=== PATIENT | male | born 1955 | race Caucasian/White ===

== ENCOUNTER 2024-08-25 17:22 | Emergency (ER) | payer OTHER, SELFPAY ==
[2024-08-25 17:30] VITALS: BP 142/87; PULSE 67; TEMP 36.3; O2SAT 98; BMI 29.9
--- NOTE | 2024-08-25 18:01 | CRLHL7_ITS ---
For Patients: As a result of the Century Cures Act, medical imaging exams and procedure reports are released immediately into your electronic medical record. You may view this report before your referring provider. If you have questions, please contact your health care provider. INDICATION: Fall COMPARISON: None TECHNIQUE: CT head and CT maxillofacial without contrast. FINDINGS: Brain Parenchyma: No acute infarct, acute intracranial hemorrhage, mass effect, or midline shift. Ventricles: No hydrocephalus. Extra-axial Spaces: No abnormal fluid collection. Paranasal sinuses: No significant mucosal thickening. Orbits: Unremarkable Mastoid Sinuses: Unremarkable Bones: No acute fracture. Soft tissues: Small right frontal subgaleal hematoma/scalp contusion. Other: Nasal cavity, oral cavity, nasopharynx, and oropharynx are unremarkable. IMPRESSION: 1. No CT evidence of an acute intracranial process. 2. Small right frontal subgaleal hematoma/scalp contusion without underlying fracture. Please note that all CT scans at this facility use dose modulation, iterative reconstruction, and/or weight-based dosing when appropriate to reduce radiation dose to as low as reasonably achievable. Dictated by George Henderson MD @ 08/25/2024 6:56:22 PM (Electronically Signed)
--- NOTE | 2024-08-25 18:01 | CRLHL7_ITS ---
For Patients: As a result of the Century Cures Act, medical imaging exams and procedure reports are released immediately into your electronic medical record. You may view this report before your referring provider. If you have questions, please contact your health care provider. INDICATION: Fall COMPARISON: None TECHNIQUE: CT of the cervical spine without contrast FINDINGS: No acute fracture or malalignment. Straightening of the normal cervical lordosis, likely positional. No listhesis. Vertebral body heights are maintained. Spondylitic changes of the cervical spine to include varying degrees of multilevel intervertebral disc height loss, degenerative endplate and uncovertebral and facet arthropathy, and small disc osteophyte complex at C6-C7. No acute high-grade spinal canal or neuroforaminal stenosis. The soft tissues are without acute abnormality. Minimal biapical pleural/parenchymal scarring. IMPRESSION: No acute fracture or trauma-related malalignment. Please note that all CT scans at this facility use dose modulation, iterative reconstruction, and/or weight-based dosing when appropriate to reduce radiation dose to as low as reasonably achievable. Dictated by George Henderson MD @ 08/25/2024 7:00:03 PM (Electronically Signed)
--- NOTE | 2024-08-25 18:02 | ED.FALL ---
HPI - Fall General Date Seen: 08/25/24 Chief Complaint: Fall/Minor Trauma Stated Complaint: fell- hit head Time Seen by Provider: 08/25/24 17:25 Source: patient Mode of arrival: ambulatory Limitations: no limitations History of Present Illness HPI Narrative: Patient is a 69-year-old male presenting to the emergency department after a fall that occurred shortly prior to arrival. He states he was playing 4 sq with his grandkids when he reached out and tried to get the ball and he tripped and fell. He landed on his right knee, right elbow and hit his right forehead. Has an abrasion to his right knee but states it is minimally painful at this time is able to ambulate without issues. Also has a small abrasion to his right elbow but denies any pain. Is not any blood thinners. Initially had some foggy vision but that has since resolved. That lasted about 10 minutes. No other concerns noted. Denies any loss of consciousness. Denies any neck pain. Denies weakness, numbness, chest pain, shortness of breath. Related Data Home Medications ?Medication ?Instructions ?Recorded ?Confirmed No Known Home Medications 08/25/24 08/25/24 Allergies Allergy/AdvReac Type Severity Reaction Status Date / Time No Known Drug Allergies Allergy Verified 08/25/24 17:34 Review of Systems Narrative: Pertinent systems reviewed and were negative unless stated in HPI PFSH PFS Social History Smoking Status: Never smoker Do you use any of these nicotine containing products: None How often do you have a drink containing alcohol: 2-4 times a month AUDIT-C Alcohol total score: 2 Exam Narrative: Exam Narrative: Const: Well-nourished, Well-developed, in name distress Eyes: PERRL, no conjunctival injection, and symmetrical lids HENT: Atraumatic external nose and ears. Moist mucous membranes. 3 x 3 cm hematoma to right forehead with small abrasion overlying Neck: Symmetric, trachea midline, No thyromegaly. CVS: RRR, No murmurs or gallops. Peripheral pulses 2+ and equal in all extremities RESP: Unlabored respiratory effort. Clear to auscultation bilaterally. GI: Nontender/Nondistended, No rebound or guarding. MSK:Extremities w/o deformity, Normal Active ROM, no tenderness noted to extremities. Skin: Warm, Dry. 1 cm oval cm abrasion noted just proximal to the right patella with other smaller abrasions around it. Small abrasions to right elbow Neuro: Normal Muscle tone, No focal neurological deficits. Psych: Awake, Alert, & Oriented x3. Appropriate mood and affect. Const: Vital Signs, click to edit/add: Vital Signs - 24 hr 08/25/24 17:30 08/25/24 19:10 Temperature 97.4 F L Pulse Rate [Pulse Oximeter] 67 62 Respiratory Rate 16 Blood Pressure [Le ft Upper Arm] 142/87 H 145/88 H Pulse Oximetry 98 96 Oxygen Delivery Me thod Room Air Room Air Course Vital Signs Vital signs: Initial Vital Signs Temperature 97.4 F L 08/25/24 17:30 Temperature Source Temporal Artery Scan 08/25/24 17:30 Pulse Rate 67 08/25/24 17:30 Pulse Rhythm Regular 08/25/24 17:30 Blood Pressure 142/87 H 08/25/24 17:30 Blood Pressure Mean 105 08/25/24 17:30 Blood Pressure Position Supine 08/25/24 17:30 Pulse Oximetry 98 08/25/24 17:30 Oxygen Delivery Method Room Air 08/25/24 17:30 Vital Signs Temperature 97.4 F L 08/25/24 17:30 Pulse Rate 67 08/25/24 17:30 Blood Pressure 142/87 H 08/25/24 17:30 Pulse Oximetry 98 08/25/24 17:30 Oxygen Delivery Method Room Air 08/25/24 17:30 Temperature 97.4 F L 08/25/24 17:30 Pulse Rate 62 08/25/24 19:10 Respiratory Rate 16 08/25/24 19:10 Blood Pressure 145/88 H 08/25/24 19:10 Pulse Oximetry 96 08/25/24 19:10 Oxygen Delivery Method Room Air 08/25/24 19:10 Medications Administered Medications: Discontinued Medications Generic Name Dose Route Start Last Admin Trade Name Freq PRN Reason Stop Dose Admin Diphtheria/Tetanus/Acell Pertussis 0.5 ml 08/25/24 18:02 08/25/24 19:00 Tetanus/Diphth/Pertussis 0.5 Ml Syringe IM 08/25/24 18:03 Not Given .ONCE ONE MDM - Fall MDM Narrative Medical decision making narrative: Patient is a 69-year-old male presenting after fall. He has never had tetanus shot before in states he does not want 1. Does have a few abrasions that are not amenable to repair at this time. Will do a CT scan of his head, face, cervical spine. Do not believe images of his elbow or knee will be beneficial as he has no tenderness there other than right on top of the abrasions and the tenderness is relatively mild. He has full function of these extremities. Wounds were cleaned thoroughly by nursing staff and covered. CT scans reviewed by myself the radiologist showed no acute concerning abnormalities. Patient is doing well in his safe for discharge. They are agreeable to this plan. Imaging Data CT scan head: Attestation: I have reviewed the pertinent imaging results. Radiologist's impression: 1. No CT evidence of an acute intracranial process. 2. Small right frontal subgaleal hematoma/scalp contusion without underlying fracture. Please note that all CT scans at this facility use dose modulation, iterative reconstruction, and/or weight-based dosing when appropriate to reduce radiation dose to as low as reasonably achievable. Dictated by George Henderson MD @ 08/25/2024 6:56:[address] scan facial bones: Attestation: I have reviewed the pertinent imaging results. Radiologist's impression: 1. No CT evidence of an acute intracranial process. 2. Small right frontal subgaleal hematoma/scalp contusion without underlying fracture. Please note that all CT scans at this facility use dose modulation, iterative reconstruction, and/or weight-based dosing when appropriate to reduce radiation dose to as low as reasonably achievable. Dictated by George Henderson MD @ 08/25/2024 6:55:[address] scan cervical spine: Attestation: I have reviewed the pertinent imaging results. Radiologist's impression: No acute fracture or trauma-related malalignment. Please note that all CT scans at this facility use dose modulation, iterative reconstruction, and/or weight-based dosing when appropriate to reduce radiation dose to as low as reasonably achievable. Dictated by George Henderson MD @ 08/25/2024 7:00:03 PM Discharge Plan Discharge Clinical Impression: Closed head injury Qualifiers: Encounter type: initial encounter Qualified Code(s): S09.90XA - Unspecified injury of head, initial encounter Contusion Qualifiers: Encounter type: initial encounter Contusion area: head Contusion of head detail: other part of head Qualified Code(s): S00.83XA - Contusion of other part of head, initial encounter Patient Disposition: Home, Self-Care Condition: Stable Instructions: Head Injury (ED) Additional Instructions: Recommend close follow-up with the primary care provider. Return to emergency department for new or worsening symptoms. Prescriptions: No Action No Known Home Medications Follow Up/Referrals: Provider,Not a Local [Primary Care Provider, Family Practice] Stand Alone Forms: [employer] Info Instructions
--- OUTSIDE RECORDS SUMMARY | 2024-08-25 19:01 | XMS_ITS | Clinical Summary ---
Author Organization [facility] Address [address], [place] [address] Care Team Providers Care Diabetes Manager Name Role Phone Kalyan Mcgee MD Primary Care Provider Source Comments You are receiving this document as you are listed as the primary care provider,follow-up provider, or the patient has been referred to you for consultation.This is in compliance with the Medicare and[facility] Incentive [facility],which states Providers who transition their patient to another setting of careor provider of care or refers their patient to another provider of care shouldprovide summary care record for each transition of care or referral. Pets are family tooPres[facility] CenterCopyRightNow Allergies No known active allergies Medications Ascorbic Acid (ACEROLA C-500) 500 MG Take by mouth. 9 Active B Complex Vitamins (VITAMIN B COMPLEX OR) Take by mouth. 9 Active guaiFENesin-cod eine (ROBITUSSINAC) 100-10 MG/5ML solution Take 5-10ml at night as needed for cough 100 mL 3 Active Additional Information Patient not taking.Reported on 01/10/2024 levalbuterol (XOPENEX HFA) 45 mcg/actuation inhaler Inhale 1-2 Puffs every 4 hours as needed for Wheezing. 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 Resolved Problems Problem Noted Date Diagnosed Date Resolved Date Closed fracture of left ankle 11/29/2016 12/26/2023 Immunizations Immunization Administration Dates Next Due Flu Vac (3+ yrs) 01/14/2013,01/18/2012 Flu Vac Preserv Free (3+yrs) 01/14/2013, 01/18/2012,01/18/2011,2008,01/09/2008 Influenza (Flucelvax), Prese rv Free QIV 12/27/2022 Influenza IIV4 (Quadrivalent ) 0.5mL (63307) 12/05/2018,12/26/2017,12/26/2016,2015,12/10/2014,12/30/2013 Influenza IIV4 (Quadrivalent ) Fluad, 65+ Yrs 01/03/2022,01/20/2021,02/10/2020 Influenza aIIV3 65+ Years (Fluad) 12/27/2023 Influenza, Unspecified Formulation 12/02/2008, Pfizer Bivalent 12+ 12/13/2021 Pfizer COVID-19 12+ 01/22/2024,02/07/2023 Pfizer Monovalent 12+ Purple Top 12/23/2020,03/0 03/2020,04/20/2020 TDAP (BOOSTRIX) 04/16/2015 Family History Medical History Relation Name Comments Other Father parkinsons. d 93.yo Parkinsons Father Cataract Mother Macular Degeneration Mother No Known Problems Brother Diabetes Paternal Grandfather Heart Disease Paternal Grandfather No Known Problems Sister Blindness Negative Family History Cancer, Colon Negative Family History Cancer, Prostate Negative Family History Glaucoma Negative Family History Retinal Detachment Negative Family History Relation Name Status Comments Father Mother Brother Alive Paternal Grandfather Sister Alive Social History Tobacco Use Types Packs/Day Years Used Date Smoking Tobacco: Never Smokeless Tobacco: Never Alcohol Use Standard Drinks/Week Comments Yes 6 (1 standard drink = 0.6 oz pur e alcohol) PHQ-2 Answer Date Recorded PHQ-2 Score 4 12/27/2023 Hunger Vital Sign Answer Date Recorded Within the past 12 months, y ou worried that your food would run out before you got the money to buy more. Never true 12/27/19 24 Within the past 12 months, t he food you bought just didn't last and you didn't have money to get more. Never true 12/27/2023 PRAPARE - Transportation Answer Date Re corded In the past 12 months, has l ack of transportation kept you from medical appointments or from getting medications? No 12/11 In the past 12 months, has l ack of transportation kept you from meetings, work, or from getting things needed for daily living? No 12/27/2023 Housing Stability Vital Sign Answer Toribio e Recorded In the last 12 months, was t here a time when you were not able to pay the mortgage or rent on time? No 12/27/2023 In the past 12 months, how m any times have you moved where you were living? 0 12/27/2023 At any time in the past 12 m [facility], were you homeless or living in a jail (including now)? 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 Not on file Not on file Last Filed Vital Signs Vital Sign Reading Time Taken Comments Blood Pressure 139/80 12/27/2023 3:30 PM CDT Pulse 70 12/27/2023 3:30 PM CDT Temperature 36.7 C (98 F) 01/29/2023 9:34 AM MARKETING DEVELOPER Respiratory Rate 16 01/29/2023 9:34 AM MARKETING DEVELOPER Oxygen Saturation 98% 01/29/2023 9:34 AM MARKETING DEVELOPER Inhaled Oxygen Concentration - - Weight 108 kg (238 lb) 12/27/2023 3:30 PM CDT Height 189 cm (6' 2.41) 12/27/2023 3:30 PM CDT Body Mass Index 30.22 12/27/2023 3:30 PM CDT Plan of Treatment Health Maintenance Due Date Last Done Comments Pneumococcal Vaccine 50+ Yrs (1 of 1 - PCV) 07/08/2003 Zoster/Shingles Vaccine (1 of 2) 07/08/2003 Colonoscopy 07/31/2022 07/31/2012, 07/12 (Completed) COVID-19 Vaccine ( season) 2024 01/22/2024, 02/07/2023, 12/13/2021, Additional history exists Adult Preventive Visit 12/26/2024 , 01/20/2021, 08/31/2018, Additional history exists DTaP/Tdap/Td Vaccine (2 - Tdap) 04/16/2025 04/16/2015 RSV Vaccine (1 - 1-dose 75+ series) 2028 Cholesterol 12/26/2028 12/27/2023, 01/11, 08/31/2018, Additional history exists PSA Screening Discussion Discontinued 013, 02/24/2011, 12/09/2008, Additional history exists Hep C Screening (Preventive Services) Completed 08/31/2018 Influenza Vaccine Completed 12/27/2023, , 01/03/2022, Additional history exists HepA Vaccine Aged Out No longer eligi ble based on patient's age to complete this topic HepB Vaccine Aged Out No longer eligi ble based on patient's age to complete this topic Hib Vaccine Aged Out No longer eligi ble based on patient's age to complete this topic MCV4 Vaccine Aged Out No longer eligi ble based on patient's age to complete this topic Meningococcal B Vaccine Aged Out No l onger eligible based on patient's age to complete this topic Procedures Procedure Name Priority Date/Time Associated Diagnosis Comments LIPID PANEL & DIRECT LDL (IF NEEDED) Routine 12/27/2023 4:22 PM CDT Dyslipidemia (HRC) HEPATITIS C ANTIBODY, WITH REFLEX (ANTI-HCV) Routine 08/31/2018 10:19 AM CDT Need for hepatitis C screening test PROSTATIC SPECIFIC ANTIGEN(SCREEN) Routine 04/12/2012 8:06 AM MARKETING DEVELOPER Special screening for malignant neoplasm of prostate from Last 3 Months or Most Recently Relevant to Health Maintenance Results * (ABNORMAL) Lipid Panel & Direct LDL (if Needed) (12/27/2023 4:22 PM CDT) Cholesterol 198 0 - 199 mg/dL 12/27/2023 4:46 PM CDT [facility] Triglyceride 199(H) <=149 mg/dL 12/27/2023 4:46 PM CDT [facility] [address] [facility] HDL Cholesterol 37(L) >=40 mg/dL 4:46 PM CDT [facility] [address] [facility] LDL, Calculated 121 <130 mg/dL 4:46 PM CDT [facility] [address] [facility] Non HDL Chol, Calculated 161(H) <=159 mg/dL 12/27/2023 4:46 PM CDT [facility] [address] [facility] Cholesterol/HDL Ratio 5.4(H) <=5.0 12/27/2023 4:46 PM CDT [facility] [address] [facility] Hours Fasting 0.1 8 - 12 Hours 12/27/2023 4:46 PM CDT [facility] [address] [facility] Comment:Lab unable to obtain patient's fasting status at time of specimen collection. Blood Venipuncture / Unknown 12/27/2023 4:22 PM CDT 12/27/2023 4:22 PM CDT us Kalyan Mcgee MD LAB_1 Final Result Performing Organization Address [facility] Co de Phone Number [facility] [address] [facility] [address] [place] [address], [facility] * Hepatitis C Antibody, with Reflex (08/31/2018 10:19 AM CDT) Hepatitis C Antibody Negative (Non Reactive) Negative (Non Reactive) 08/31/2018 12:27 PM CDT [facility] Comment:Antibodies to HCV no t detected. Does not exclude the possiblity of exposure to HCV. Blood Venipuncture / Unknown 08/31/2018 10:19 AM CDT 08/31/2018 10:20 AM CDT us Brian Hernandez DO LAB_1 Final Resul t Performing Organization Address [facility]/ZIP Co de Phone Number [facility] [address] [place], [place] [address] * Prostatic Specific Antigen (Screen) (04/12/2012 8:06 AM MARKETING DEVELOPER) Prostate Specific Antigen 0.9 0.0 - 4.0 ng/mL HP CONVERSION 04/12/2012 8:06 AM MARKETING DEVELOPER 04/12/2012 10:21 AM MARKETING DEVELOPER Misael Huerta PA-C LAB_1 Final Resu lt HP CONVERSION from Last 3 Months or Most Recently Relevant to Health Maintenance Insurance HP SELF MANAGED CARE HP COMM HP FAMILY DENTAL Care Teams Diabetes Manager Relationship Specialty Start Date End Date Kalyan Mcgee MD [address] [address] PCP - General Family Practice 01/20/21
[2024-08-25 19:10] VITALS: BP 145/88; PULSE 62; RESP 16; O2SAT 96
== END 2024-08-25 19:36 | disposition home or self-care (01) ==
PROVIDERS: Emergency Provider Student in an Organized Health Care Education/Training Program
DX: S00.93XA Contusion of unspecified part of head, initial encounter (principal); S80.211A Abrasion, right knee, initial encounter; S50.311A Abrasion of right elbow, initial encounter; W18.30XA Fall on same level, unspecified, initial encounter; Z23 Encounter for immunization
CPT/HCPCS: 70450; 70486; 72125; 90471; 99284